=== PATIENT | male | born 1935 | race Caucasian/White ===

== ENCOUNTER → 2017-11-17 | Outpatient (CLI) | payer BC ==
--- NOTE | 2017-11-17 09:22 | KCIC ---
Ultrasound evaluation of the abdominal aorta 11/17/2017 INDICATION: Screening exam. History of tobacco abuse. Discussion: Limited ultrasound evaluation of the abdominal aorta was performed. Static images are submitted to PACS. Diffuse status chronic vascular disease is noted. Proximal abdominal aorta measures up to 2.9 cm in diameter. Mid abdominal aorta measures up to 2.3 cm in diameter. Distal abdominal aorta measures up to 2.4 cm in diameter. IMPRESSION: Ectasia of the proximal abdominal aorta. Electronically signed by: Luis Smith MD (11/17/2017 9:19 AM) [facility]
== END | disposition home or self-care (01) ==
LOC: KCIC US 08:09
PROVIDERS: ATTEND Family Medicine
DX: I77.811 Abdominal aortic ectasia (principal); Z87.891 Personal history of nicotine dependence
CPT/HCPCS: 76770

== ENCOUNTER → 2017-12-10 | Outpatient (CLI) | payer BC ==
[~2017-12-10] MED LIST: ATEN25TA PO; LOSA25TA5 PO; REGADENOSON 0.4 MG/5 ML DISP.SYRIN. IV ONE
--- NOTE | 2017-12-10 09:52 | CARD ---
MR#: [id number] Date of Study: 12/10/2017 Ordering Physician: JOSELIN EMERSON, Referring Physician: JOSELIN EMERSON Tech: Elizabeth Rollins RDCS APPROVED REPORT EXAM: Two-dimensional and M-mode echocardiogram with Doppler and color Doppler. Other Information Quality : GoodHR: 58bpm Rhythm : Bradycardia INDICATION Dyspnea 2D DIMENSIONS RVDd3.2 (2.9-3.5cm)Left Atrium(2D)3.1 (1.6-4.0cm) IVSd0.7 (0.7-1.1cm)Aortic Root(2D)3.4 (2.0-3.7cm) LVDd5.6 (3.9-5.9cm)LVOT Diameter2.2 (1.8-2.4cm) PWd0.8 (0.7-1.1cm)LVDs3.7 (2.5-4.0cm) FS (%) 34.0 %SV94.4 ml LVEF(%)62.3 (>50%) M-Mode DIMENSIONS Left Atrium(MM)3.25 (2.5-4.0cm)Aortic Root3.87 (2.2-3.7cm) Aortic Valve AoV Peak Cole.118.0cm/sAoV VTI33.5cm AO Peak GR.5.6mmHgLVOT Peak Cole.90.9cm/s AO Mean GR.3mmHgAVA (VMAX)3.05cm2 ERIC (VTI)2.16gi8TO P 1/2 Hbuq502uv Mitral Valve MV E Yutewdud98.0cm/sMV E Peak Gr.3mmHg MV DECEL [id number] A Wfflidwb58.5cm/s MV E Mean Gr.1mmHgE/A Ratio1.8 MV A Dtidhijr952cg Pulmonary Valve PV Peak Lekfdtyw08.6cm/s Tricuspid Valve TR P. Vtxittfh993ti/sRAP TARKGBQM1aqFm TR Peak Gr.85duHjTEWS46lkYi LEFT VENTRICLE The left ventricle is normal size. There is normal left ventricular wall thickness. The left ventricu lar systolic function is normal. The Ejection Fraction is 55-60%. There is normal LV segmental wall m otion. RIGHT VENTRICLE The right ventricle is normal size. There is normal right ventricular wall thickness. The right ventr icular systolic function is normal. ATRIA The left atrium size is normal. The right atrium is mildly dilated. The interatrial septum is intact with no evidence for an atrial septal defect or patent foramen ovale as noted on 2-D or Doppler imagi ng. AORTIC VALVE The aortic valve is trileaflet. The aortic valve is normal in structure and function. Doppler and Col or Flow revealed trace aortic regurgitation. There is no significant aortic valvular stenosis. MITRAL VALVE The mitral valve is normal in structure and function. There is no evidence of mitral valve prolapse. There is no mitral valve stenosis. Doppler and Color-flow revealed trace mitral regurgitation. TRICUSPID VALVE The tricuspid valve is normal in structure and function. Doppler and Color Flow revealed mild tricusp id regurgitation. There is moderate pulmonary hypertension. The PA pressure was estimated at 50 mmHg. There is no tricuspid valve prolapse or vegetation. There is no tricuspid valve stenosis. PULMONIC VALVE The pulmonary valve is normal in structure and function. Doppler and Color Flow revealed trace pulmon ic valvular regurgitation. There is no pulmonic valvular stenosis. GREAT VESSELS The aortic root is normal in size. The ascending aorta is normal in size. PERICARDIAL EFFUSION There is no evidence of significant pericardial effusion. Critical Notification Critical Value: No <Conclusion> The left ventricular systolic function is normal. The Ejection Fraction is 55-60%. There is normal LV segmental wall motion. Trace mitral regurgitation. Mild tricuspid regurgitation. There is moderate pulmonary hypertension. The PA pressure was estimated at 50 mmHg. There is no evidence of significant pericardial effusion. Signed by : Joselin Emerson, Electronically Approved : 12/10/2017 09:51:49
--- NOTE | 2017-12-10 13:04 | RAD ---
MR#: [id number] Date of Study: 12/10/2017 Ordering Physician: JOSELIN BALTAZAR, Referring Physician: ELMER DANG Tech: ANASTASIYA Pandya, ARRT (R) (N)ORALIA Ramírez APPROVED REPORT Test Type: Pharmacological Stress Nurse/Tech: Suzanne Sevilla R.N. Test Indications: [place] Cardiac History: htn Medications: See Electronic Medical Record Medical History: See Electronic Medical Record Resting ECG: SB w/1 noted pac, inverted T wave in lead AVL Resting Heart Rate: 57 bpm Resting Blood Pressure: 171/65mmHg Pretest Chest Pain: No chest pain Nurse/Tech Notes S1S2, lungs CTA Consent: The procedure was explained to the patient in lay terms. Informed consent was witnessed. Asher eout was entered into [employer]. History and Stress Test performed by ORALIA Ramírez Pharm. Details Pharmacologic stress testing was performed using 0.4mg per 5ml of regadenoson given intravenously ove r 7-10 seconds. Stress Symptoms SOB POST EXERCISE Reason for Termination: Infusion complete Max HR: 72 bpm Max Blood Pressure: 134/48mmHg Blood Pressure response to exercise: Normal blood pressure response during stress. Heart Rate response to exercise: wnl Chest Pain: No. Arrhythmia: No. ST Change: No. INTERPRETATION Stress EKG Conclusion: The resting EKG shows a mild sinus bradycardia, PACs and nonspecific ST segmen t changes. The stress EKG shows no significant changes from baseline. No EKG evidence of stress-induced ischemia. Imaging Protocol IMAGE PROTOCOL: Rest Tc-99m/stress Tc-99m 1 day Rest: Stress: Viability: Radiopharm.Tc99m HaqudriauRb69s Sestamibi Iruw34tQh 33mCi Duration 15min. 13min. Img Date 12/10/2017 12/10/2017 Inj-Img [id number]. 60min. Rest Admin Site:IV - Right ForearmAdministrator:ANASTASIYA Pandya, ARRT (R)(N) Stress Admin Site: IV - Right ForearmAdministrator: Alma Rosa Caro, NMTCB, ARRT (R)(N) STRESS DATA End Diast. Vol.110.0mlLVEDV index BSA53.0ml End Syst. Vol.37.0mlLVESV index BSA18.0ml Myocardial Mown652.0gEject. Hqdlywwg73.0% Stress Scores Regional WT0.00Summed WT2.00 Regional WM0.00Summed WM1.00 LV Perfusion The stress scans showed no significant defects. The rest scans showed no significant defects. Nuclear imaging shows no reversible ischemia or infarct. Wall Motion Normal left ventricular systolic function with an ejection fraction of 66%. LV Perf. Quant 17 Seg. SSS1.00 17 Seg. SRS1.00 17 Seg. SDS0.00 Stress Defect Extent (% LAD)0.00Rest Defect Extent (% LAD)0.00Rev. Defect Extent (% LAD)0.00 Stress Defect Extent (% LCX) 0.00Rest Defect Extent (% LCX)0.00Rev. Defect Extent (% LCX)0.00 Stress Defect Extent (% RCA)0.00Rest Defect Extent (% RCA)0.00Rev. Defect Extent (% RCA)0.00 Stress Defect Extent (% SOHEILA)0.00Rest Defect Extent (% SOHEILA)1.10Rev. Defect Extent (% SOHEILA)0.00 Conclusion 1. No EKG evidence of stress-induced ischemia. 2. Nuclear imaging shows no reversible ischemia or infarct. 3. Normal left ventricular systolic function with an ejection fraction of 66%. 4. Low to moderately low risk Lexiscan nuclear stress test. Signed by : Jim Henry MD Electronically Approved : 12/10/2017 13:04:28
== END | disposition home or self-care (01) ==
LOC: ECHO 07:45
PROVIDERS: ATTEND Internal Medicine Cardiovascular Disease
DX: I27.20 Pulmonary hypertension, unspecified (principal); I36.1 Nonrheumatic tricuspid (valve) insufficiency; I10 Essential (primary) hypertension; R00.1 Bradycardia, unspecified
CPT/HCPCS: 78452; 93017; 93306; 96374; 96375; 96376; A9500; J2785

== ENCOUNTER → 2020-08-23 | Outpatient (CLI) | payer BC ==
[~2020-08-23] MED LIST changes: -LOSA25TA5 PO; +LOSA25TA54 PO; -REGADENOSON 0.4 MG/5 ML DISP.SYRIN. IV ONE
--- NOTE | 2020-08-23 16:39 | KCIC ---
EXAMINATION: XR CERVICAL SPINE 2-3V CLINICAL HISTORY: NECK PAIN LEFT SIDE XS 1 MONTH, NO INJURY TECHNIQUE: XR CERVICAL SPINE 2-3V Number of Images/Views: 4 COMPARISON: None FINDINGS: Straightening of the normal cervical lordosis, possibly positional. No evidence of acute fracture or spondylolisthesis. 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 Multilevel facet arthropathy, incompletely dione luated. No prevertebral soft tissue swelling. IMPRESSION: No acute osseous abnormality. Multilevel degenerative findings as described. Electronically signed by: Humberto Marquez DO (08/23/2020 4:37 PM) [id number]
--- NOTE | 2020-08-23 16:41 | KCIC ---
EXAMINATION: US HEAD/NECK SOFT TISSUE CLINICAL HISTORY: Left Posterior Neck Pain Near Skull x 2 mo TECHNIQUE: Sonography at the region of interest in the left posterior cervical soft tissues. COMPARISON: None FINDINGS/ IMPRESSION: No soft tissue mass, collection, or discrete abnormality visualized in the area of concern. Electronically signed by: Humberto Marquez DO (08/23/2020 4:39 PM) [id number]
== END ==
LOC: KCIC US 12:14
PROVIDERS: ATTEND Nurse Practitioner Family
DX: M47.812 Spondylosis without myelopathy or radiculopathy, cervical region (principal); M50.30 Other cervical disc degeneration, unspecified cervical region; M25.78 Osteophyte, vertebrae
CPT/HCPCS: 72040; 76536